=== PATIENT | female | born 1955 | race Caucasian/White ===

== ENCOUNTER 2022-10-17 20:42 | Inpatient (IN) | payer OTHER ==
[~2022-10-17] VITALS: Ht 157.5 cm; Wt 49.9 kg
[~2022-10-17 20:42] MED LIST: CEFAZOLIN 1 G VIAL ONE; DEXAMETHASONE SOD PHOSPHATE 4 MG INJ ONE; EPHEDRINE SULFATE 50 MG/ML AMPUL ONE; LIDOCAINE-MPF 2% 5 ML VIAL ONE; METOCLOPRAMIDE HCL 10 MG/2 ML VIAL ONE; ONDANSETRON 4 MG/2 ML VIAL ONE; PROPOFOL 200 MG/20 ML BOTTLE ONE; SUCCINYLCHOLINE CHLORIDE 200 MG/10 ML VIAL ONE
--- NOTE | 2022-10-17 20:58 | NUR ---
BIB AMBULANCE S/P TRIP AND FALL WITH C/O PAIN TO HER RIGHT HIP AND ARM. pATIENT IS ALERT AND ORIENTED X 4, NO S/S OF AY DISTRESS NOTED.
[2022-10-17] MEDS ORDERED: HYDROMORPHONE 1 MG/1 ML DISP.SYRIN IM ONE (21:00)
[2022-10-17] MEDS ORDERED: ONDANSETRON HCL 4 MG TABLET PO ONE (21:00)
[2022-10-17] MEDS ORDERED: PARO-154 PO (21:00)
[2022-10-17] MEDS ORDERED: ONDANSETRON ODT 4 MG TAB.RAPDIS ONE (21:03)
[2022-10-17] MEDS ORDERED: HYDROMORPHONE 2 MG/1 ML DISP.SYRIN ONE (21:03)
--- NOTE | 2022-10-17 21:40 | NUR ---
Called Dr Milan Grover 1st pressman on web press. Waiting for a callback for ortho consult.
--- NOTE | 2022-10-17 21:40 | NUR ---
MD at bedside talking with patient, patient aware will be admitted to the hospital, awaiting room assignment.
--- NOTE | 2022-10-17 21:54 | NUR ---
Bedside EKG done for MD review. COVID amd MRSA swab done and sent to lab.
--- NOTE | 2022-10-17 22:13 | NUR ---
Dr Monzon called back. Ortho consult in progress with Dr Milian.
--- NOTE | 2022-10-17 22:15 | NUR ---
called [facility] for panel call. awaiting for Kimberli BATISTA to call back
--- NOTE | 2022-10-17 22:22 | NUR ---
XRAY AT BEDSIDE.
[2022-10-17 22:37] LABS: HEMATOCRIT 35.1 % (31.2-41.9); MEAN CORPUSCULAR HEMOGLOBIN 28.9 uug (24.7-32.8); MEAN CORPUSCULAR VOLUME 88.7 fL (75.5-95.3); PLATELET COUNT (AUTO) 257 K/uL (179-408)
[2022-10-17 22:51] LABS: CREATININE 0.7 mg/dL (0.6-1.3); POTASSIUM 3.7 mmol/L (3.5-5.1)
[2022-10-17 22:56] LABS: BILIRUBIN,DIRECT 0.1 mg/dL (0.0-0.2); BILIRUBIN,TOTAL 0.4 mg/dL (0.2-1.0); MAGNESIUM 2.2 mg/dL (1.8-2.4); TOTAL PROTEIN, SERUM 6.9 g/dL (6.4-8.2)
--- NOTE | 2022-10-17 23:36 | NUR ---
Report given to accepting nurse Ho, patient remais stable for transport.
[2022-10-17] MEDS ORDERED: ONDANSETRON 4 MG/2 ML VIAL IV PRN (23:45)
[2022-10-17] MEDS ORDERED: MAGNESIUM HYDROXIDE 30 ML LIQUID UDC PO PRN (23:45)
[2022-10-17] MEDS ORDERED: ACETAMINOPHEN 325 MG TABLET PO PRN (23:45)
[2022-10-17] MEDS ORDERED: IV LACTATED RINGERS SOLUTION 1,000 ML IV PRN (23:45)
[2022-10-17] MEDS ORDERED: REMEDY ESSENTIAL ZINC PASTE 113 GM TP PRN (23:45)
[2022-10-17 23:53] LABS: IRON, SERUM 36 ug/dL (50-175)
--- NOTE | 2022-10-18 00:10 | NUR ---
Admitted patient in Med surg floor,alert oriented, diagnosis of right hip under the care of Conner Ag VESSEL WELDER, patient alert oriented, silvestre cath in place, complains of right hip pain, cont to monitor.
[2022-10-18] MEDS: MORPHINE SULFATE 2 MG/1 ML DISP.SYRIN IV PRN ×3 (00:17→14:44)
[2022-10-18 00:36] VITALS: BP 94/47
--- NOTE | 2022-10-18 03:14 | NUR ---
Patient complain of muscle spasm on the right hip, causing more pain on the right hip fracture, notify Camilo Whitaker NP with order.
[2022-10-18] MEDS ORDERED: BACLOFEN 10 MG TABLET PO ONE (03:15)
[2022-10-18 04:00] VITALS: BP 105/50
[2022-10-18 07:35] LABS: HEMATOCRIT 34.3 % (31.2-41.9); MEAN CORPUSCULAR HEMOGLOBIN 29.1 uug (24.7-32.8); MEAN CORPUSCULAR VOLUME 88.4 fL (75.5-95.3); PLATELET COUNT (AUTO) 239 K/uL (179-408)
[2022-10-18 07:51] LABS: CREATININE 0.7 mg/dL (0.6-1.3); MAGNESIUM 1.9 mg/dL (1.8-2.4); PHOSPHOROUS 2.9 mg/dL (2.5-4.9)
[2022-10-18] MEDS ORDERED: HEPARIN SODIUM,PORCINE 5,000 UNITS/ML VIAL SQ SCH (09:00)
[2022-10-18] MEDS: PAROXETINE HCL 10 MG TABLET PO SCH (09:00)
[2022-10-18 11:34] VITALS: BP 116/58
[2022-10-18 15:18] VITALS: BP 125/67
[2022-10-18 15:38] VITALS: BP 125/67
--- NOTE | 2022-10-18 16:07 | NUR ---
Pt. was picked up by OR nurse (Leanne). Pt. has been NPO since 209910/17/2022. Consent form for procedure signed and included in pt. chart.
[2022-10-18] MEDS ORDERED: VANCOMYCIN 1000 MG VIAL ONE (16:35)
[2022-10-18] MEDS ORDERED: TRANEXAMIC ACID 1,000 MG/10 ML VIAL ONE (17:14)
[2022-10-18] MEDS ORDERED: FENTANYL CITRATE 100 MCG/2 ML AMPUL ONE (17:15)
[2022-10-18] MEDS ORDERED: FAMOTIDINE. 20 MG/2 ML VIAL IV ONE (17:15)
[2022-10-18] MEDS ORDERED: HYDROCODONE/APAP 10-325 MG TABLET PO PRN (18:45)
--- NOTE | 2022-10-18 19:18 | NUR ---
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 Patient Asleep at this time, but arouse to verbal stimuli. In no apparent distress. Denies any pain or SOB at this time. Dressing on right hip area intact, dry and clean. IV site on left AC intact and patent. Safety measure initiated and call light within reached.
[2022-10-18] MEDS: IV D5W-0.45% NS +20 KCL 1,000 ML IV PRN (19:59)
[2022-10-18 20:00] VITALS: BP 120/63
[2022-10-19] MEDS: CEFAZOLIN 1 G in IV DEXTROSE 5% 50 ML IV SCH ×2 (01:00→09:15)
[2022-10-19 04:00] VITALS: BP 96/39
--- NOTE | 2022-10-19 05:28 | NUR ---
Patient slept through out the night. In no acute distress. No complain of pain or SOB. No adverse reaction noted from IV antibiotic. Flower catheter intact and draining via gravity. Safety measure maintained and call light within reached.
[2022-10-19 06:59] LABS: HEMATOCRIT 31.5 % (31.2-41.9); MEAN CORPUSCULAR HEMOGLOBIN 29.3 uug (24.7-32.8); MEAN CORPUSCULAR VOLUME 88.4 fL (75.5-95.3); PLATELET COUNT (AUTO) 220 K/uL (179-408)
--- NOTE | 2022-10-19 07:30 | NUR ---
1) MENTAL STATE: Received patient asleep, AO x4, no sign of SOB, pain, or distress observed. 2) BREATHING - on RA, NO sob, distress or signs and non verbal signs of pain 3) DIET: Can now eat and drink post - op. 4) INFECTION CONTROL: IV access - patent, clean, dry & patent, no sign of infection of inflammation observed. 5) SKIN: Skin is intact - pressure area care will be maintained as required. 6) MOBILITY: Bed bound - will be up wit TP - for eval 7) Vitals - remains stable with a few episodes of low BP.. 80 Will continue to assess, plan, implement, & evaluate care accordingly
[2022-10-19 07:31] LABS: CREATININE 0.8 mg/dL (0.6-1.3); POTASSIUM 4.2 mmol/L (3.5-5.1)
--- NOTE | 2022-10-19 08:30 | NUR ---
PT THERAPY: 1) Seen by PT - And order: - ensure abduction pillow is maintained at all time to prevent dislocation. - Morphine was administered for pain pre - PT. 2) Dressing remains clean ,dry, and intact.
[2022-10-19] MEDS: PAROXETINE HCL 10 MG TABLET PO SCH (09:01)
[2022-10-19] MEDS: MORPHINE SULFATE 4 MG/1 ML DISP.SYRIN IV PRN ×3 (09:01→17:01)
--- NOTE | 2022-10-19 10:20 | NUR ---
Morphine administered x2 for pain with effect.
[2022-10-19 11:11] VITALS: BP 92/42
[2022-10-19] MEDS: HEPARIN SODIUM,PORCINE 5,000 UNITS/ML VIAL SQ SCH ×2 (12:15→20:19)
--- NOTE | 2022-10-19 14:20 | NUR ---
Patient comfortable at the time of this report. Endorsing to charge nurse, and no sign of discomfort at the time of this endorsement.
[2022-10-19 16:05] VITALS: BP 98/42
--- NOTE | 2022-10-19 17:57 | NUR ---
CONTINUE WITH PAIN MANAGEMENT, PATIENT DENIES SOB, RIGHT HIP INCISION CLEAN AND DRY NO SS OF BLEEDING, ABLE TO WIGGLE TOES FREELY, A-PILLOW MAINTAINED AT ALL TIMES
--- NOTE | 2022-10-19 19:24 | NUR ---
Received patient lying in bed. AAOx4. In no acute distress. No complain of pain or SOB at this time. Abduction pillow in between legs. IV site on left AC intact and patent. IVF infusing. Flower catheter intact and draining via gravity. Needs assessed and attended to. Safety measure initiated and call light within reached.
[2022-10-19 20:00] VITALS: BP 100/34
[2022-10-19] MEDS: MUPIROCIN 2% OINT 22 GM TUBE NS SCH (20:18)
--- NOTE | 2022-10-19 22:22 | NUR ---
Cooling measure provided and Tylenol 650mg PO given for fever. Latest temp 99.2 orally. Continue to monitor. Encourage the use of incentive spirometer.
[2022-10-20 03:48] VITALS: BP 96/44
[2022-10-20] MEDS: IV D5W-0.45% NS +20 KCL 1,000 ML IV PRN (05:05)
--- NOTE | 2022-10-20 05:24 | NUR ---
Afebrile. No adverse reaction noted from IV antibiotic. Abduction pillow in between legs. Flower catheter intact and draining via gravity. Needs attended to and met. Safety measure maintained and call light within reached.
[2022-10-20 06:55] LABS: HEMATOCRIT 29.4 % (31.2-41.9); MEAN CORPUSCULAR HEMOGLOBIN 29.3 uug (24.7-32.8); MEAN CORPUSCULAR VOLUME 89.4 fL (75.5-95.3); PLATELET COUNT (AUTO) 171 K/uL (179-408)
[2022-10-20 07:24] LABS: CREATININE 0.7 mg/dL (0.6-1.3); MAGNESIUM 2.1 mg/dL (1.8-2.4); PHOSPHOROUS 2.9 mg/dL (2.5-4.9); POTASSIUM 4.2 mmol/L (3.5-5.1)
[2022-10-20] MEDS: MUPIROCIN 2% OINT 22 GM TUBE NS SCH (08:23)
[2022-10-20] MEDS: PAROXETINE HCL 10 MG TABLET PO SCH (08:23)
[2022-10-20] MEDS: HEPARIN SODIUM,PORCINE 5,000 UNITS/ML VIAL SQ SCH (08:25)
[2022-10-20] MEDS: MORPHINE SULFATE 4 MG/1 ML DISP.SYRIN IV PRN ×2 (08:59→13:35)
[2022-10-20] MEDS ORDERED: HYDR-3980 PO (10:05)
[2022-10-20] MEDS ORDERED: HEPA50007 SQ (10:06)
[2022-10-20] MEDS ORDERED: MAGN400O6 PO (10:06)
[2022-10-20] MEDS ORDERED: MUPI22OI2 NS (10:06)
[2022-10-20] MEDS ORDERED: IV NORMAL SALINE 500 ML IV ONE (10:15)
[2022-10-20 11:36] VITALS: BP 101/41
--- NOTE | 2022-10-20 14:42 | NUR ---
Pt. was discharged to [facility]. Picked up with ambulance. IV line removed. Pt. noted to be stable upon the discharge. Personal belonging returned to the patient. All necessary document signed. Report given to RN at the facility.
[2022-10-20 15:10] LABS: NEUTROPHILS % (MANUAL) 0 % (42-75)
== END 2022-10-20 14:45 | DRG 522 ==
LOC: ER 20:42 → MEDSURG3 22:28
PROVIDERS: ADMIT Nurse Practitioner Acute Care; ATTEND Registered Nurse
PROC: 0SRR0JA Replacement of Right Hip Joint, Femoral Surface with Synthetic Substitute, Uncemented, Open Approach (ICD-10-PCS; principal; 2022-10-18)
DX: S72.011A Unspecified intracapsular fracture of right femur, initial encounter for closed fracture (principal); W01.0XXA Fall on same level from slipping, tripping and stumbling without subsequent striking against object, initial encounter; Y93.01 Activity, walking, marching and hiking; Y92.480 Sidewalk as the place of occurrence of the external cause; I45.10 Unspecified right bundle-branch block; M62.838 Other muscle spasm; Z88.1 Allergy status to other antibiotic agents; F41.9 Anxiety disorder, unspecified; F32.A Depression, unspecified; Z79.899 Other long term (current) drug therapy; R94.31 Abnormal electrocardiogram [ECG] [EKG]
CPT/HCPCS: 36415; 70030-TC; 71045; 73501; 73502; 83550; 83735; 84100; 85025; 85730; 86850; 86870; 86900; 86901; 93005; 93307; A4649; A4663; C1776; G0378; J0330; J0690; J1100; J1170; J1644; J2270; J2405; J2765; J3010; J3370; J3490; J7040; J7120; Q0162